=== PATIENT | male | born 1970 | race Caucasian/White ===

== ENCOUNTER 2019-03-21 02:56 | Emergency (ER) | payer OTHER, SELFPAY ==
[2019-03-21 02:57] VITALS: BP 132/83; PULSE 71; RESP 12; TEMP 36.6; O2SAT 98; BMI 28.6
--- NOTE | 2019-03-21 03:30 | ED.VIS.INJ ---
History of Present Illness Chief Complaint: Syncope Informant: Patient, Significant Other Onset: Today Mechanism/Context: Blunt Injury, Fall Quality of Pain: - - Patient denies any pain Location: Laceration above medial left brow Current Severity: Mild Maximum Severity: Moderate Worsened by: Blunt trauma Relieved by: Nothing Associated Symptoms: Loss of consciousness, -. Negative for: Parasthesias, Weakness, Loss of function, Inability to ambulate, Amnesia Length of loss of consciousness: Approximately 1 minute Narrative: Patient is a 48-year-old male who states he was getting out of bed. A charley horse. He fell forward striking his head. There was loss of conscious. He denies headache. Denies nausea vomiting. states he complained of neck pain. He presently denies neck pain. He denies paresthesia, anesthesia motors. He denies visual, ocular auditory symptoms. Last tetanus was March 19, 2010. Tetanus Immunization: 5-10 years Prior similar symptoms: No Recent Illness/Hospitalization: No - Past Medical History (1) No significant past medical history Status: Acute Past Medical History - Allergies and Home Meds Allergies/Adverse Reactions: Allergies No Known Allergies Allergy (Verified 03/21/19 02:57) Primary Care Physician: Elroy Hua MD [Primary Care Provider] - Prior records reviewed: Yes Past Medical History: None Surgical History: no surgical history Lives: Spouse/ Significant Other Smoking Status: Former smoker Alcohol: Rare Drugs: None Review of Systems General: Denies: Chills, Fever, Malaise Eyes: Denies: Visual changes - bilaterally, Blurred Vision - bilaterally, Diplopia ENT: Reports: - - Denies ringing in his ears decreased hearing. Denies epistaxis.. Denies: Bilateral ear pain, Rhinorrhea, Sore throat Cardiovascular: Denies: Chest pain, Palpitations Respiratory: Denies: Dyspnea, Cough, Dyspnea on exertion Gastrointestinal: Denies: Nausea, Vomiting Musculoskeletal: Reports: Neck pain - Initially states he complained of neck pain. He denies neck pain.. Denies: Myalgias, Arthralgias, Back pain, Swelling, Extremity Pain Skin: Reports: Wounds. Denies: Rash Neurological: Denies: Headache, Weakness, Parasthesia, Numbness Hematologic: Denies: Easy bruising, Easy bleeding Physical Exam Vital Signs/Narrative: Vital Signs Temp Pulse Resp BP Pulse Ox 03/21/19 02:57 97.8 F 71 12 132/83 H 98 Inital Vital Signs reviewed: Yes General: Well nourished, Well developed Head: Normocephalic, Trauma, - - There is no findings of basilar skull fracture. Eyes: Perrl, EOMI, - - No subconjunctival hemorrhage noted.. Negative for: Pale conjunctiva, Scleral icterus ENT: TM's clear, No hemotympanum or drainage, No trauma. Negative for: Hemotympanum, Otorrhea, Nasal trauma, Nasal septal hematoma Neck: Nontender, Full ROM, - - C-spine was cleared per Nexus criteria. Negative for: Spinal Tenderness, Paraspinal Tenderness Cardiovascular: Regular rate, Regular rhythm, No murmurs, Normal S1, Normal S2 Respiratory: No distress, CTA bilaterally, Chest nontender Abdomen: Soft, Nontender, Nondistended, Normal bowel sounds Back: Nontender Skin: Normal color, No rash, Trauma - Curvilinear laceration above the left eyebrow Neurological: Alert, Oriented x3, Cranial nerves II-XII grossly intact, Normal Strength, Normal Sensation, Normal DTR, Normal Gait Psychological: Normal affect - Glascow Coma Scale Eye Opening: Spontaneous Motor: Obeys Commands Verbal: Oriented Coma Scale Total: 15 Diagnostic/Tx/Re-eval - Medical Decision Making With no complaint of headache, no nausea vomiting and transient loss of consciousness per the [place] CT head rules radiologic imaging is not indicated. He and his were told he has a concussion. He does have a laceration which will require repair. The area was anesthetized by the supraorbital and trochlear nerve block. Please read procedure note. Laceration No standard instances Length: 1.18 in Depth: Fascia Shape: Linear Prep: Shure-Clens Laceration Repair: Lidocaine - Trochlear and supraorbital nerve block Irrigated (ml): 150 Number of Sutures/[place]: 9 Stitch Description: Simple, 6-0 ED Disposition - Plan for ED Patient: Disposition: Home or Assisted Living Diagnosis: Concussion with loss of consciousness <= 30 min, Facial laceration Instructions: LACERATION, Face (Suture or Tape), LACERATION, How to Minimize Scar, CONCUSSION, No Wake Up Referrals: Elroy Hua MD [Primary Care Provider] - 5 Days for suture removal Additional Instructions: Clean wound with peroxide and Q-tip 3 times a day then apply bacitracin ointment.
[2019-03-21 04:41] VITALS: BP 123/79; PULSE 72; RESP 14; O2SAT 99
== END 2019-03-21 04:49 | disposition home or self-care (01) ==
PROVIDERS: Emergency Provider Emergency Medicine; PCP Family Medicine
DX: S01.81XA Laceration without foreign body of other part of head, initial encounter (principal); S06.0X1A Concussion with loss of consciousness of 30 minutes or less, initial encounter; R40.2410 Glasgow coma scale score 13-15, unspecified time; W19.XXXA Unspecified fall, initial encounter; Y93.9 Activity, unspecified; Y92.9 Unspecified place or not applicable; Z87.891 Personal history of nicotine dependence
CPT/HCPCS: 12013; 99283

== ENCOUNTER → 2022-10-19 | Outpatient (CLI) | payer OTHER, SELFPAY ==
[2022-10-19 07:23] LABS: Absolute Lymphocyte Count 2.87 X10^3/uL (0.83-4.51); Basophil# 0.04 X10^3/uL; Basophil% 0.5 % (0-1); Eosinophil# 0.08 X10^3/uL; Eosinophils% 1.1 % (0-5); Hematocrit 44.1 % (40-54); Hemoglobin 14.5 g/dL (13.0-16.5); Lymphocyte # 2.87 X10^3/ul (0.83-4.51); Mean Corp Hgb Conc 32.9 g/dL (32-36); Mean Corpuscular Hgb 30.3 pg (27.0-32.0); Mean Corpuscular Volume 92.1 fL (80-94); Mean Platelet Vol. 8.2 fl (6.2-12.0); Monocyte# 0.56 X10^3/uL; Monocyte% 7.4 % (0-10); NRBC Flagged by Analyzer 0 % (0-5); Neutrophil # 3.98 X10^3/uL (2.7-7.7); Neutrophil % 52.7 % (47-70); Platelet Count 390 K/mm3 (150-450); RBC Distribution Width CV 12.3 % (11.6-14.6); RBC Distribution Width SD 42.1 fl (35.1-43.9); Red Blood Count 4.79 M/mm3 (4.6-6.2); White Blood Count 7.6 K/mm3 (4.4-11.0)
[2022-10-19 08:39] LABS: Vitamin D,25 Hydroxy 34.2 ng/mL
[2022-10-19 08:46] LABS: ALB/GLOB Ratio 1.2 RATIO (0.9-2.4); AST(SGOT) 16 U/L (15-37); Alanine Aminotransfer ALT/SGPT 31 U/L (16-61); Albumin, Serum 3.8 g/dL (3.2-5.0); Alkaline Phosphatase 54 U/L (45-117); Anion Gap 4 (5-15); BUN 15 mg/dL (7-18); BUN/Creat Ratio 17.1 RATIO (10-20); Calcium,Total 8.8 mg/dL (8.5-10.1); Chloride 106 mmol/L (98-107); Cholesterol 202 mg/dL (200); Creatinine, Serum 0.88 mg/dL (0.70-1.30); EST Glomerular Filtration Rate 98 mL/min (>60); Est Glom Filt Rate - Afr Amer 118 mL/min (>60); Globulin 3.3 g/dL (2.2-4.2); Glucose 121 mg/dL (74-106); High Density Lipoprotein 45 mg/dL; PSA,Total - Annual Screen 0.32 ng/mL (0.00-4.00); Potassium 3.6 mmol/L (3.5-5.1); Protein, Total 7.1 g/dL (6.4-8.2); Sodium Level 140 mmol/L (136-145); Thyroid Stim Hormone (TSH) 1.37 uIU/mL (0.358-3.74); Triglycerides 117 mg/dL; Very Low Density Lipoprotein 23 mg/dL (5-40)
[2022-10-20 12:16] LABS: Hemoglobin A1c 6.6 % (3.8-5.6)
== END | disposition home or self-care (01) ==
LOC: LAB 05:53
PROVIDERS: PCP Internal Medicine; Referring Provider Internal Medicine; Visit Provider Internal Medicine
DX: Z00.00 Encounter for general adult medical examination without abnormal findings (principal); E55.9 Vitamin D deficiency, unspecified; Z12.5 Encounter for screening for malignant neoplasm of prostate; R73.9 Hyperglycemia, unspecified; Z13.220 Encounter for screening for lipoid disorders
CPT/HCPCS: 36415; 80053; 80061; 82306; 83036; 84153; 84443; 85025; G0103

== ENCOUNTER 2022-12-02 07:23 | Day surgery (SDC) | payer OTHER, SELFPAY ==
[2022-12-02] VITALS (7 sets, daily range): BP systolic 94–126; BP diastolic 65–79; PULSE 65–79; RESP 16–18; TEMP 36.1–36.6; O2SAT 93–100; BMI 27.3
--- NOTE | 2022-12-02 07:43 | PCM.HP.BLA ---
History and Physical Date of Admission: 12/02/22 Visit Reasons: INGUINAL HERNIA/SCREENING SCOPE Chief Complaint: Possible right inguinal hernia Director Internal Control Required: No Is patient in pain?: No Allergies No Known Allergies Allergy (Verified 10/06/22 10:08) Medications NK 09/26/22 [History Confirmed 10/06/22] [facility] Medical History (Updated 10/06/22 @ 10:[address] Kevin Vega MD) Colon cancer screening Contact dermatitis due to plant Hepatitis HTN (hypertension) Right inguinal hernia Surgical History (Updated 10/06/22 @ 10:05 by Charo Padron) No history of previous surgery Family History (Updated 10/06/22 @ 10:06 by Charo Padron) Father Myocardial infarction Heart diseaseMother CVA (cerebral vascular accident) DiabetesSister Breast cancerOther Hypertension Non-Hodgkin lymphoma Social History (Updated 09/26/22 @ 09:09 by Octavio Banda) adopted: No household members: spouse housing: house number of children: 2 current occupational status: employed current occupation: [employer] current occupational exposures/hazards: Yes pets and animals: Yes leisure activities: fishing and other history of recent travel: Yes sexually active: Yes Smoking Status: Former smoker alcohol intake: current details: rarely substance use type: does not use well-balanced diet: daily or most days caffeine: Yes eating out: 1-3 times/week during the past year weight has: decreased > 10 lbs what type of physical activity do you participate in: other rivas/sikhism: Sikh seatbelt use: always do you feel safe at home: Yes HPI HPI HPI: 52-year-old gentleman is being referred by Dr. Jeannie Eubanks for surgical consultation regarding a suspected right inguinal hernia. A written copy of my surgical consult and recommendations will return to him. The patient apparently has noted this area for about 6 months. The patient is also being referred for consideration of a screening colonoscopy. The patient has not had a previous one. The patient is interested in screening colonoscopy today. He is complaining of a bulge in the right groin. 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 He still does significant mount of lifting. Occasionally by the end of the day there will be some discomfort in the right groin and he notices it more when he lies on his right side. He has not yet had to manually reduce it. He is also interested in pursuing a vasectomy. ROS General General: Yes weight change; No appetite, fatigue, colon cancer, breast cancer or weakness HEENT HEENT: No difficulty swallowing, eye injury, eye surgery, swollen glands or hoarseness Endo Endocrine: No thyroid disease, diabetes mellitus, thyroid cancer, Hair loss, heat intolerance or cold intolerance Skin Skin: No rash or changing moles Breast Breast: No left breast lump, right breast lump, nipple discharge, breast pain, abnormal mammogram, abnormal US or breast enlargement Musc Musculoskeletal: No back problems, arthritis, rheumatoid arthritis, gout or joint pain Cardio Cardiovascular: No murmur, pacemaker, heart disease, atrial fibrillation, high blood pressure, heart attack, heart stent, palpitations, shortness of breat with exertion or chest pain Psych Psychiatric: No depression, anxiety or hearing voices Resp Respiratory: No shortness of breath, No sleep apnea, No cough, No COPD, No asthma, No emphysema and No wheezing Gastro Gastrointestinal: No abdominal pain, No nausea or vomiting, No diarrhea, No constipation, No blood in stool, No acid reflux, No hemorrhoids, No ulcers, No gallbladder problem and No black,tarry stools Bridger Hematologic: No blood thinners, No blood disorders, No bleeding, No anemia and No blood clots Neuro Neurologic: No system reviewed and no additional complaints, except as documented, No as per HPI, No abnormal gait, No abnormal hearing, No abnormal movements, No abnormal speech, No behavioral changes, No burning sensations, No confusion, No convulsions, No disequilibrium, No dizziness, No localized weakness, No frequent falls, No headache(s), No lack of coordination, No loss of vision, No memory loss, No numbness, No other visual disturbances, No radicular pain, No restless legs, No sensory deficit, No syncope, No tingling, No tremor(s), No weakness and No other Exam Const General: cooperative, comfortable and no acute distress Nutritional Appearance: average body habitus [facility] Head: normal to inspection Eyes General: appearance normal, both eyes and all related structures Neck Neck: normal visual inspection Chest Chest palpation & inspection: normal inspection of the chest Resp Effort & Inspection: normal respiratory effort Auscultation: clear to auscultation bilaterally Cardio Rate: regular rate Rhythm: regular rhythm GI Inspection: normal to inspection Palpation: soft and no hepatosplenomegaly Other: Nonreducible umbilical hernia noted Other: Obvious right inguinal hernia which is reducible Weakness noted on the left but distinct hernia difficult to appreciate Bilateral testicles are descended without testicular mass Skin General: no rashes or lesions noted Neuro General: patient alert, patient awake and patient oriented x3 Extrem General: no calf tenderness Psych Appearance: grossly normal Assessment and Plan Assessment and Plan (1) Colon cancer screening: Status: Acute (2) Right inguinal hernia: Status: Acute Plan: I recommend to the patient a screening colonoscopy with possible biopsy or polypectomy as indicated. He is aware of the technique, benefit, risk, alternatives. We will schedule and proceed as noted. I recommended the patient laparoscopic right inguinal herniorrhaphy with mesh. He is aware that if there is an obvious left inguinal hernia that I will proceed with a left inguinal herniorrhaphy laparoscopically at the same setting. Clinically I detected an umbilical hernia with preperitoneal fatty tissue. He is aware that we make an incision there and I will be performing an umbilical herniorrhaphy likely with mesh at the same setting. He also is aware of technique, benefit, risk, alternatives. He had an opportunity to ask and have questions answered. We will schedule and proceed as noted. The patient asked about sterilization in the form of bilateral partial vasectomy. In detail I have discussed with him the technique, benefit, risk, alternatives. He is additionally been provided written descriptive information. He is aware that there are no guarantees of success. He is aware that I consider this to be a permanent procedure. I have offered to proceed and perform this during his operative hernia repairs. I very much appreciate the kind opportunity of assisting with the surgical care Copy: Dr. Jeannie Vega M.D., F.A.C.S. (3) Encounter for sterilization: Status: Acute (4) Umbilical hernia without obstruction or gangrene: Status: Acute I have examined the patient and the H&P has been reviewed. There are no clinical changes since date of exam. Kevin Vega M.D., F.A.C.S.
[2022-12-02] MEDS: Lactated Ringers 1,000 ML 15 ML IV (07:48)
--- NOTE | 2022-12-02 08:30 | COLBX_PTH ---
PATIENT: VIVIENNE SOLIS LOC: EN U#:[id number] AGE/SX: 52/M ROOM: RE12/02/[address]: Dr. Kevin Vega MD : 1970 BED: DIS: 12/02/2022 SPEC #: [id number] RECD: 12/02/22 10:17 STATUS: MARGIE ASENCIO #: [id number] JIM: 12/02/22 08:[address]: Kevin Vega DEPT: SURGICAL PATHOLOGY RECD BY: Lizz Herbert ENTERED: 12/02/22 11:09 SP TYPE: COLON BX OTHR DR: Dr. Jeannie Eubanks MD Tissues: COLON BIOPSY Procedures: Surgery Specimen Level IV HEADER OPERATION: Colonoscopy, biopsy PRE-OP DIAGNOSIS: Screening TISSUE SUBMITTED: Hepatic flexure MICROSCOPIC DIAGNOSIS Hepatic flexure, biopsy: Fragments of hyperplastic polyp. SJ:karla 12/05/2022 MICROSCOPIC DESCRIPTION Slides are reviewed. GROSS DESCRIPTION Received in fixative is one container labeled with the patient's name and designated hepatic flexure. The specimen consists of multiple irregular fragments of light mcdonald soft tissue that in aggregate measure 1.0 x 0.4 x 0.1 cm. The specimen is totally submitted in one cassette. / SJ:karla 12/02/2022 TC:5 CPT: 97516
--- NOTE | 2022-12-02 08:45 | OP.COLON_ITS ---
Patient Name: Yoandy Ragsdale Procedure Date: 12/02/2022 8:18 AM Date of : 1970 Age: 52 Procedure: Colonoscopy Indications: Screening for colorectal malignant neoplasm Providers: Kevin Vega MD Medicines: See the Anesthesia note for documentation of the administered medications Patient Profile: Last Colonoscopy: none. The patient's first colonoscopy is today. Complications: No immediate complications. Procedure: Pre-Anesthesia Assessment: - Prior to the procedure, a History and Physical was performed, and patient medications and allergies were reviewed. The patient's tolerance of previous anesthesia was also reviewed. The risks and benefits of the procedure and the sedation options and risks were discussed with the patient. All questions were answered, and informed consent was obtained. Prior Anticoagulants: The patient has taken no anticoagulant or antiplatelet agents. ASA Grade Assessment: II - A patient with mild systemic disease. After reviewing the risks and benefits, the patient was deemed in satisfactory condition to undergo the procedure. After I obtained informed consent, the scope was passed under direct vision. Throughout the procedure, the patient's blood pressure, pulse, and oxygen saturations were monitored continuously. The Colonoscope was introduced through the anus and advanced to the terminal ileum, with identification of the appendiceal orifice and IC valve. The colonoscopy was performed without difficulty. The patient tolerated the procedure well. The quality of the bowel preparation was fair. The ileocecal valve and the appendiceal orifice were photographed. Scope In: 8:25:39 AM Scope Withdrawal Time 0 hours 10 minutes 53 seconds Scope Out: 8:40:26 AM Total Procedure Duration Time 0 hours 14 minutes 47 seconds Findings: The digital rectal exam findings include non-thrombosed internal hemorrhoids and internal hemorrhoids (Grade I). Pertinent negatives include normal prostate (size, shape, and consistency). A 3 mm polyp was found in the hepatic flexure. The polyp was sessile. The polyp was removed with a cold biopsy forceps. Resection and retrieval were complete. Multiple diverticula were found in the sigmoid colon and descending colon. Impression: - Preparation of the colon was fair. - Non-thrombosed internal hemorrhoids and internal hemorrhoids (Grade I) found on digital rectal exam. - One 3 mm polyp at the hepatic flexure, removed with a cold biopsy forceps. Resected and retrieved. - Diverticulosis in the sigmoid colon and in the descending colon. Recommendation: - Discharge patient to home. - Resume previous diet. - Continue present medications. - Repeat colonoscopy in 5-10years for surveillance based on pathology results. This area of the hepatic flexure was very small and nonspecific. Cold forcep biopsy pending. - Telephone my office for pathology results in 1 week. Procedure Code(s): --- Professional --- 70323, Colonoscopy, flexible; with biopsy, single or multiple Diagnosis Code(s): --- Professional --- Z12.11, Encounter for screening for malignant neoplasm of colon K64.0, First degree hemorrhoids D12.3, Benign neoplasm of transverse colon (hepatic flexure or splenic flexure) K57.30, Diverticulosis of large intestine without perforation or abscess without bleeding CPT copyright 2021 [employer]. All rights reserved. The codes documented in this report are preliminary and upon fish cleaner machine tender review may be revised to meet current compliance requirements. Kevin Vega MD 12/02/2022 8:45:21 AM This report has been signed electronically. Number of Addenda: 0 Note Initiated On: 12/02/2022 8:18 AM
--- NOTE | 2022-12-02 08:46 | OP.CCLET_ITS ---
12/02/2022 Jeannie Eubanks [facility] [address] [place] [address] Re : Colonoscopy procedure for Yoandy Ragsdale Dear Dr. Eubanks This procedure was performed on Friday, December 02, 2022. My impressions and recommendations are as follows: Impressions : - Preparation of the colon was fair. - Non-thrombosed internal hemorrhoids and internal hemorrhoids (Grade I) found on digital rectal exam. - One 3 mm polyp at the hepatic flexure, removed with a cold biopsy forceps. Resected and retrieved. - Diverticulosis in the sigmoid colon and in the descending colon. Recommendations : - Discharge patient to home. - Resume previous diet. - Continue present medications. - Repeat colonoscopy in 5-10years for surveillance based on pathology results. This area of the hepatic flexure was very small and nonspecific. Cold forcep biopsy pending. - Telephone my office for pathology results in 1 week. My findings are described in the full procedure note, which is enclosed. If I can be of further assistance, please feel free to contact me at Doctor phone number(s): Work: . Sincerely, Kevin Vega MD 12/02/2022 8:45:21 AM This report has been signed electronically.
== END 2022-12-02 09:35 | disposition home or self-care (01) ==
LOC: EN 07:23 → AC 07:24
PROVIDERS: PCP Internal Medicine; Referring Provider Internal Medicine; Visit Provider Surgery
PROC: 0DJD8ZZ Inspection of Lower Intestinal Tract, Via Natural or Artificial Opening Endoscopic (ICD-10-PCS; CPT 45378; principal; 2022-12-02 08:25)
DX: Z12.11 Encounter for screening for malignant neoplasm of colon (principal); K63.5 Polyp of colon; K57.30 Diverticulosis of large intestine without perforation or abscess without bleeding; K64.0 First degree hemorrhoids; I10 Essential (primary) hypertension; Z87.891 Personal history of nicotine dependence; K40.90 Unilateral inguinal hernia, without obstruction or gangrene, not specified as recurrent
CPT/HCPCS: 45380; 88305; J7120; J2405

== ENCOUNTER 2023-01-30 06:05 | Day surgery (SDC) | payer OTHER, SELFPAY ==
[2023-01-18 08:29] LABS: Hematocrit 44.7 % (40-54); Hemoglobin 14.8 g/dL (13.0-16.5); Mean Corp Hgb Conc 33.1 g/dL (32-36); Mean Corpuscular Hgb 29.7 pg (27.0-32.0); Mean Corpuscular Volume 89.8 fL (80-94); Mean Platelet Vol. 8.1 fl (6.2-12.0); Platelet Count 368 K/mm3 (150-450); RBC Distribution Width CV 12.6 % (11.6-14.6); RBC Distribution Width SD 41.2 fl (35.1-43.9); Red Blood Count 4.98 M/mm3 (4.6-6.2); White Blood Count 8.4 K/mm3 (4.4-11.0)
[2023-01-18 08:54] LABS: Anion Gap 5 (5-15); BUN 13 mg/dL (7-18); BUN/Creat Ratio 14.6 RATIO (10-20); Calcium,Total 9.1 mg/dL (8.5-10.1); Chloride 104 mmol/L (98-107); Creatinine, Serum 0.89 mg/dL (0.70-1.30); EST Glomerular Filtration Rate 95 mL/min (>60); Est Glom Filt Rate - Afr Amer 115 mL/min (>60); Glucose 143 mg/dL (74-106); Potassium 3.5 mmol/L (3.5-5.1); Sodium Level 137 mmol/L (136-145)
[2023-01-30] VITALS (10 sets, daily range): BP systolic 112–129; BP diastolic 70–84; PULSE 66–89; RESP 16–18; TEMP 36.2–36.4; O2SAT 94–100; BMI 28.4
[2023-01-30] MEDS: Lactated Ringers 1,000 ML 15 ML IV (06:54)
--- NOTE | 2023-01-30 06:58 | HP.PCM_ITS ---
History and Physical Date of Admission: 01/30/23 Chief Complaint: Possible right inguinal hernia Public Policy Analyst Required: No Is patient in pain?: No Allergies No Known Allergies Allergy (Verified 10/06/22 10:08) Medications NK 09/26/22 [History Confirmed 10/06/22] COUNT INCLUDES THE [facility] Medical History (Updated 10/06/22 @ 10:[address] Kevin Vega MD) Colon cancer screening Contact dermatitis due to plant Hepatitis HTN (hypertension) Right inguinal hernia Surgical History (Updated 10/06/22 @ 10:05 by Charo Padron) No history of previous surgery Family History (Updated 10/06/22 @ 10:06 by Charo Padron) Father Myocardial infarction Heart diseaseMother CVA (cerebral vascular accident) DiabetesSister Breast cancerOther Hypertension Non-Hodgkin lymphoma Social History (Updated 09/26/22 @ 09:09 by Octavio Banda) adopted: No household members: spouse housing: house number of children: 2 current occupational status: employed current occupation: [employer] current occupational exposures/hazards: Yes pets and animals: Yes leisure activities: fishing and other history of recent travel: Yes sexually active: Yes Smoking Status: Former smoker alcohol intake: current details: rarely substance use type: does not use well-balanced diet: daily or most days caffeine: Yes eating out: 1-3 times/week during the past year weight has: decreased > 10 lbs what type of physical activity do you participate in: other rivas/druze: Confucianism seatbelt use: always do you feel safe at home: Yes HPI HPI HPI: 52-year-old gentleman is being referred by Dr. Jeannie Eubanks for surgical consultation regarding a suspected right inguinal hernia. A written copy of my surgical consult and recommendations will return to him. The patient apparently has noted this area for about 6 months. The patient is also being referred for consideration of a screening colonoscopy. The patient has not had a previous one. The patient is interested in screening colonoscopy today. He is complaining of a bulge in the right groin. 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 He still does significant mount of lifting. Occasionally by the end of the day there will be some discomfort in the right groin and he notices it more when he lies on his right side. He has not yet had to manually reduce it. He is also interested in pursuing a vasectomy. ROS General General: Yes weight change; No appetite, fatigue, colon cancer, breast cancer or weakness HEENT HEENT: No difficulty swallowing, eye injury, eye surgery, swollen glands or hoarseness Endo Endocrine: No thyroid disease, diabetes mellitus, thyroid cancer, Hair loss, heat intolerance or cold intolerance Skin Skin: No rash or changing moles Breast Breast: No left breast lump, right breast lump, nipple discharge, breast pain, abnormal mammogram, abnormal US or breast enlargement Musc Musculoskeletal: No back problems, arthritis, rheumatoid arthritis, gout or joint pain Cardio Cardiovascular: No murmur, pacemaker, heart disease, atrial fibrillation, high blood pressure, heart attack, heart stent, palpitations, shortness of breat with exertion or chest pain Psych Psychiatric: No depression, anxiety or hearing voices Resp Respiratory: No shortness of breath, No sleep apnea, No cough, No COPD, No asthma, No emphysema and No wheezing Gastro Gastrointestinal: No abdominal pain, No nausea or vomiting, No diarrhea, No constipation, No blood in stool, No acid reflux, No hemorrhoids, No ulcers, No gallbladder problem and No black,tarry stools Bridger Hematologic: No blood thinners, No blood disorders, No bleeding, No anemia and No blood clots Neuro Neurologic: No system reviewed and no additional complaints, except as documented, No as per HPI, No abnormal gait, No abnormal hearing, No abnormal movements, No abnormal speech, No behavioral changes, No burning sensations, No confusion, No convulsions, No disequilibrium, No dizziness, No localized weakness, No frequent falls, No headache(s), No lack of coordination, No loss of vision, No memory loss, No numbness, No other visual disturbances, No radicular pain, No restless legs, No sensory deficit, No syncope, No tingling, No tremor(s), No weakness and No other Exam Const General: cooperative, comfortable and no acute distress Nutritional Appearance: average body habitus [facility] Head: normal to inspection Eyes General: appearance normal, both eyes and all related structures Neck Neck: normal visual inspection Chest Chest palpation & inspection: normal inspection of the chest Resp Effort & Inspection: normal respiratory effort Auscultation: clear to auscultation bilaterally Cardio Rate: regular rate Rhythm: regular rhythm GI Inspection: normal to inspection Palpation: soft and no hepatosplenomegaly Other: Nonreducible umbilical hernia noted Other: Obvious right inguinal hernia which is reducible Weakness noted on the left but distinct hernia difficult to appreciate Bilateral testicles are descended without testicular mass Skin General: no rashes or lesions noted Neuro General: patient alert, patient awake and patient oriented x3 Extrem General: no calf tenderness Psych Appearance: grossly normal Assessment and Plan Assessment and Plan (1) Colon cancer screening: Status: Acute (2) Right inguinal hernia: Status: Acute Plan: I recommend to the patient a screening colonoscopy with possible biopsy or polypectomy as indicated. He is aware of the technique, benefit, risk, alternatives. We will schedule and proceed as noted. I recommended the patient laparoscopic right inguinal herniorrhaphy with mesh. He is aware that if there is an obvious left inguinal hernia that I will proceed with a left inguinal herniorrhaphy laparoscopically at the same setting. Clinically I detected an umbilical hernia with preperitoneal fatty tissue. He is aware that we make an incision there and I will be performing an umbilical herniorrhaphy likely with mesh at the same setting. He also is aware of technique, benefit, risk, alternatives. He had an opportunity to ask and have questions answered. We will schedule and proceed as noted. The patient asked about sterilization in the form of bilateral partial vasectomy. In detail I have discussed with him the technique, benefit, risk, alternatives. He is additionally been provided written descriptive information. He is aware that there are no guarantees of success. He is aware that I consider this to be a permanent procedure. I have offered to proceed and perform this during his operative hernia repairs. I very much appreciate the kind opportunity of assisting with the surgical care Copy: Dr. Jeannie Vega M.D., F.A.C.S. (3) Encounter for sterilization: Status: Acute (4) Umbilical hernia without obstruction or gangrene: Status: Acute Patient presents for treatment of an umbilical hernia and a right inguinal hernia and request for sterilization in the form of bilateral partial vasectomy. Plan to perform a laparoscopic right inguinal herniorrhaphy with subsequent a direct umbilical herniorrhaphy. Mesh will be utilized were necessary. Plan to proceed with a laparoscopic right partial vasectomy and open Mullins scrotal left partial vasectomy as a means of sterilization. If a left inguinal hernia is identified at the time this operation the patient requested that I proceed laparoscopically with a left inguinal herniorrhaphy as well. I have assisted him with a colonoscopy on December 02, 2022. Preparation of the colon was fair. Hemorrhoids were notified. A 3 mm polyp was seen in the hepatic flexure and was removed. Sigmoid diverticulosis noted. Pathology on the polyp was hyperplastic. He has had an opportunity to ask and have questions answered. We will proceed as noted. Kevin Vega M.D., F.A.C.S.
--- NOTE | 2023-01-30 07:18 | DCINST_ITS ---
Discharge Instructions Procedure General Surgery Diet Discharge Diet: Light diet - advance as tolerated (if you have questions about your diet instructions, please talk to you doctor.) Activity Discharge Activity: May Not Drive (for 3-5 days or while taking narcotic pain medicine.) May shower in (days): 1 Lifting Restrictions: 10 pounds Dressing / Incision Call your doctor if your incision/area has: Continuous Slow Oozing, Sudden Increased Bleeding, Increased Pain/ Swelling, Increased Redness and Foul Smelling Discharge Call your doctor if you observe: Fever of 101 or Higher Suture Line Care: Avoid Pulling/Pushing and Avoid Pinching/Bending Additional Dressing/Incision Instructions:: Change or remove dressing in 4 days. Leave steri-strips in place for 1 week. Follow Up Care Please Follow Up With: Kevin Vega MD When: Call [phone] to make an appointment to be seen in about 10 days. Test Results: Test results from this visit will be discussed in further detail at your follow- up appointment, if applicable. Discharge Plan Admission Attending Provider: Kevin Vega Primary Care Provider: Jeannie Eubanks Discharge Orders/Prescriptions Prescriptions: No Action NK Referrals / Follow Up: Jeannie Eubanks MD [Primary Care Provider] - Disposition Disposition (needs filled in before D/C Order can be placed): Home, Self Care
[2023-01-30] MEDS: Cefazolin 2 GM in 0.9% Normal Saline (100mL Bag) 100 ML IV (07:27)
--- NOTE | 2023-01-30 07:30 | VAS_PTH ---
PATIENT: VIVIENNE SOLIS LOC: [facility] U#:[id number] AGE/SX: 52/M ROOM: RE01/30/[address]: Dr. Kevin Vega MD : 1970 BED: DIS: 01/30/2023 SPEC #: [id number] RECD: 01/30/23 12:03 STATUS: MARGIE ASENCIO #: [id number] JIM: 01/30/23 07:[address]: Kevin Vega DEPT: SURGICAL PATHOLOGY RECD BY: Mariah Burnett ENTERED: 01/30/23 12:04 SP TYPE: VAS OTHR DR: Dr. Jeannie Eubanks MD Tissues: A - HERNIA B - Right vas deferens (non-sterilization) C - Left vas deferens (not sterilization) Procedures: Surgery Specimen Level II Surgery Specimen Level III HEADER OPERATION: Laparoscopic right inguinal hernia repair PRE-OP DIAGNOSIS: Right inguinal hernia, sterilization, umbilical hernia TISSUE SUBMITTED: A - Hernia sac and contents, B - Right vas deferens, C - Left vas deferens MICROSCOPIC DIAGNOSIS A. Hernia sac: Pieces of fibroadipose and fibroconnective tissue, consistent with hernia sac. B. Right vas deferens, partial vasectomy: Completely transected segment of vas deferens, no pathologic diagnosis. C. left vas deferens, partial vasectomy: Completely transected segment of vas deferens, no pathologic diagnosis. BENIGNO:karla 01/31/2023 MICROSCOPIC DESCRIPTION Slides are reviewed. GROSS DESCRIPTION A - Received in fixative is one container labeled with the patient's name and designated hernia sac and contents. The specimen consists of two pieces of soft tissue measuring in aggregate 3.0 x 1.5 x 0.6 cm. No mass lesion is identified. Reading Teacher sections are submitted in one cassette. A - Received is one container designated right vas deferens. The specimen consists of a tubular segment of mcdonald soft tissue measuring 2.0 cm in length and up to 0.3 cm in diameter. The specimen is sectioned and submitted entirely in one cassette. B - Received is one container designated left vas deferens. The specimen consists of a tubular segment of mcdonald soft tissue measuring 2.0 cm in length and 0.3 cm in diameter. The specimen is sectioned and submitted entirely in one cassette. / BENIGNO:karla 01/30/2023 TC:5 CPT: 95931 x 3
[2023-01-30] MEDS: Mupirocin Ointment 22gm Tube 1 APPLIC (08:58)
[2023-01-30] MEDS: Bupivacaine Mpf 0.5% 30 ML VIAL (09:09)
--- NOTE | 2023-01-30 09:22 | OP.PCM_ITS ---
Report of Operation Date of Procedure: 01/30/23 Pre-Operative Diagnosis: Large indirect right inguinal hernia, ventral hernia at the umbilicus, request for bilateral partial vasectomy as a means of sterilization Post-Operative Diagnosis: Same Umbilical defect 2.5 cm in diameter Surgery/Procedure Performed:: Laparoscopic right inguinal herniorrhaphy with extra-large Bard 3D max mesh, lot [id number], reference [id number], expiry date 06/11/2027 Umbilical herniorrhaphy with Ventralex ST hernia patch 6.4 cm diameter, lot [id number], reference #[id number], expiry date 04/12/2024 Laparoscopic right partial vasectomy, Mullins scrotal left partial vasectomy Description of Surgical Findings:: Timeout informed consent was obtained. 52-year-old gentleman was taken to the operating placed upon the table underwent general endotracheal ovation esthesia. Ancef 2 g were given intravenously. The abdomen and full scrotal prep was performed. 0.5% Marcaine was used as a local anesthetic. Throughout the procedure a total of 30 cc was used. Skin sites were Haydee size. A curvilinear incision was made in the inferior portion of the umbilicus sharp and blunt dissection performed umbilical hernia sac and contents were dissected free with sharp scalpel and scissor and electrocautery dissection. Preperitoneal plane plane was developed. And a sound catheter though then was inserted the abdomen was insufflated with CO2 to a pressure of 10 mmHg pressure. 10 mm laparoscope inserted. 5 mm trocars were placed on the right and left lower quadrant. The left groin was inspected photographs obtained no evidence of any significant corneal defect. Right groin was imaged demonstrating a large indirect right inguinal hernia. The peritoneum superior and lateral to the internal ring on the right was incised carried immediately tediously the peritoneum was dissected free a very large indirect inguinal hernia was encountered and the dissection was quite tedious sharp dissection blunt dissection was used to completely invert the sac the direct space was then identified the indirect space and the femoral area. A extra-large Bard 3D max mesh was placed and it very nicely cover the defect area. It was secured laterally and superiorly and medially with secure strap. I felt that I got very good coverage and fixation. The peritoneum was approximated to itself with secure strap. Couple defects in the peritoneum were closed with Hem-o-brian clips. Complete obliteration to the mesh was achieved. It is of note that prior to closing the peritoneum I did do a partial vasectomy on the right. The vas deferens was dissected free Hem-o-brian clips were placed proximally and distally prior to a approximately 3 cm segment excised. That was submitted directly into formalin. The abdomen is mild inflated with CO2. A preperitoneal space was created at the umbilicus. 6.[address] mesh was inserted the tails were secured with interrupted 0 Nurolon and the fascia was approximated transversely with simple sutures of 0 Nurolon with the sutures getting a portion of the anterior wall of the mesh. The abdomen was then reinsufflated and using a 5 mm scope inspected the closure at the umbilicus which appeared to be intact. The peritoneum had been closed itself with a umrrkb-ad-gqaig suture of 0 Vicryl. The groin was inspected was noted to be intact. The abdomen was allowed to deflated the CO2. Skin edges were approximated with interrupted 4 Monocryl subdermal stitches Steri-Strips Telfa OpSite dressings applied. Attention was now drawn to the left scrotum. Small incision was created the vas deferens was localized elevated and dissected free. The ends were crushed with hemostats the segment was transected the ends were secured with 3-0 chromic reconverted and resecured. The skin edges approximated interrupted subdermal sutures of 3-0 chromic. Topical antibiotic ointment was applied followed by gauze dressing. Fishnet panties were applied. Sponge and instrument and needle counts were reported to the surgeon to be cor rect. Blood loss was minimal. No apparent complication. He tolerated the procedure well. He was taken to the recovery area in satisfied condition. Specimen umbilical hernia sac and contents. Segments of bilateral vas deferens. Drains none. Blood loss minimal He was taken to the recovery room in satisfied condition without apparent complication Kevin Vega M.D., F.A.C.S. Surgeon: Kevin Vega Type of Anesthesia: General and Local Anesthesiologist: Ranjith Topete
[2023-01-30] MEDS: HYDROcodone Bitartrate/Apap 5/325 Tablet PO (11:03)
== END 2023-01-30 11:45 | disposition home or self-care (01) ==
LOC: SDC 06:06 → AC 06:06
PROVIDERS: PCP Internal Medicine; Referring Provider Surgery; Visit Provider Surgery
PROC: (CPT 49650; principal; 2023-01-30 07:10)
DX: K40.90 Unilateral inguinal hernia, without obstruction or gangrene, not specified as recurrent (principal); K43.9 Ventral hernia without obstruction or gangrene; I10 Essential (primary) hypertension; Z87.891 Personal history of nicotine dependence; K42.9 Umbilical hernia without obstruction or gangrene; Z30.2 Encounter for sterilization
CPT/HCPCS: 49650; 55250; 00840; 36415; 80048; 85027; 88302; 88304; 93005; C1781; J7120; J2405

== ENCOUNTER → 2023-03-08 | Outpatient (CLI) | payer OTHER, SELFPAY ==
--- NOTE | 2023-03-08 06:04 | CYSPIN_PTH ---
PATHOLOGY RESULTS PATIENT: VIVIENNE SOLIS LOC: [facility] U#:[id number] AGE/SX: 52/M ROOM: RE03/08/[address]: Dr. Kevin Vega MD : 1970 BED: DIS: 03/08/2023 SPEC #: [id number] RECD: 03/08/23 08:23 STATUS: MARGIE ASENCIO #: [id number] JIM: 03/08/23 06:[address]: Kevin Vega DEPT: CYTOLOGY RECD BY: Lizz Herbert ENTERED: 03/08/23 08:25 SP TYPE: CYSPIN FL OTHR DR: Dr. Jeannie Eubanks MD Tissues: Cytologic material, NOS Procedures: Pap Stain (control) Special Stain Group II Cytospin Fluid HEADER OPERATION: Not noted PRE-OP DIAGNOSIS: Z98.52 TISSUE SUBMITTED: Semen fluid for cytology DIAGNOSIS CYTOLOGY Semen analysis (cytospin): Spermatozoa present. AM:karla 03/08/2023 COMMENT Case has been reviewed in consultation with Dr. Garcia who concurs with the above diagnosis. IDC:SJ CYTOLOGY STUDY Slides are reviewed. CYTOLOGY GROSS Received is 4 ml of opaque mucoidy fluid labeled with the patient's name and and designated per the requisition as semen. Submitted for cytology preparation. / karla 03/08/2023 TC:5 CPT: 07904
[2023-03-08 18:16] LABS: Pathologist Review Will follow; Semen Analysis Post Vas PATH REVIEW ONLY
== END | disposition home or self-care (01) ==
LOC: LABSPEC 06:01
PROVIDERS: PCP Internal Medicine; Referring Provider Surgery; Visit Provider Surgery
DX: Z30.2 Encounter for sterilization (principal)
CPT/HCPCS: 88108; 88313; 89321

== ENCOUNTER → 2023-04-18 | Outpatient (CLI) | payer OTHER, SELFPAY ==
--- NOTE | 2023-04-18 | CYSPIN_PTH ---
PATHOLOGY RESULTS PATIENT: VIVIENNE SOLIS LOC: LAB U#:[id number] AGE/SX: 52/M ROOM: RE04/18/[address]: Dr. Kevin Vega MD : 1970 BED: DIS: 04/18/2023 SPEC #: [id number] RECD: 04/18/23 08:48 STATUS: MARGIE ASENCIO #: [id number] JIM: 04/18/23 00:[address]: Kevin Vega DEPT: CYTOLOGY RECD BY: Case Brock ENTERED: 04/18/23 08:49 SP TYPE: CYSPIN FL OTHR DR: Dr. Jeannie Eubanks MD Tissues: Cytologic material, NOS Procedures: Pap Stain (control) Special Stain Group II Cytospin Fluid HEADER OPERATION: Post vasectomy PRE-OP DIAGNOSIS: Vasectomy status TISSUE SUBMITTED: Seminal fluid for cytology DIAGNOSIS CYTOLOGY Seminal fluid for cytology (cytospin): Rare spermatozoa are present in the sample. AM:karla 04/18/2023 CYTOLOGY STUDY Slides are reviewed. CYTOLOGY GROSS Received is 1 ml of cloudy opaque fluid labeled with the patient's name and and designated per the requisition as seminal fluid. Submitted for cytology preparation. / karla 04/18/2023 TC:5 CPT: 21610
[2023-04-18 15:57] LABS: Pathologist Review Reviewed
[2023-04-18 15:58] LABS: Semen Analysis Post Vas PATH REVIEW ONLY
== END | disposition home or self-care (01) ==
LOC: LAB 06:09
PROVIDERS: PCP Internal Medicine; Referring Provider Surgery; Visit Provider Surgery
DX: Z30.2 Encounter for sterilization (principal)
CPT/HCPCS: 88108; 88313; 89321

== ENCOUNTER → 2023-05-25 | Outpatient (CLI) | payer OTHER, SELFPAY ==
--- NOTE | 2023-05-25 05:30 | CYSPIN_PTH ---
PATIENT: VIVIENNE SOLIS LOC: [facility] U#:[id number] AGE/SX: 52/M ROOM: RE05/25/[address]: Dr. Kevin Vega MD : 1970 BED: DIS: 05/25/2023 SPEC #: [id number] RECD: 05/25/23 08:46 STATUS: MARGIE ASENCIO #: [id number] JIM: 05/25/23 05:[address]: Kevin Vega DEPT: CYTOLOGY RECD BY: Lizz Herbert ENTERED: 05/25/23 08:46 SP TYPE: CYSPIN FL OTHR DR: Dr. Jeannie Eubanks MD Tissues: Cytologic material, NOS Procedures: Pap Stain (control) Special Stain Group II Cytospin Fluid HEADER OPERATION: Post vasectomy PRE-OP DIAGNOSIS: Post vasectomy status TISSUE SUBMITTED: Spermatozoa for cytology DIAGNOSIS CYTOLOGY Seminal fluid for cytology (cytospin): Spermatozoa are not present. SJ/mr 05/25/23 CYTOLOGY STUDY Slides are reviewed. CYTOLOGY GROSS Received is 5 ml of mcdonald cloudy mucoidy fluid labeled with the patient's name and and designated per the requisition as Spermatozoa fluid. Submitted for cytology preparation including cell block. 05/25/23 TC:5 CPT: 01765
[2023-05-25 06:02] LABS: Cytology, Semen SEE PATHOLOGY REPORT
== END | disposition home or self-care (01) ==
LOC: LABSPEC 05:57
PROVIDERS: PCP Internal Medicine; Referring Provider Surgery; Visit Provider Surgery
DX: Z98.52 Vasectomy status (principal); Z30.2 Encounter for sterilization
CPT/HCPCS: 88108; 88313

== ENCOUNTER → 2023-06-08 | Outpatient (CLI) | payer OTHER, SELFPAY ==
--- NOTE | 2023-06-07 06:12 | CYSPIN_PTH ---
PATIENT: VIVIENNE SOLIS LOC: [facility] U#:[id number] AGE/SX: 52/M ROOM: RE06/08/[address]: Dr. Kevin Vega MD : 1970 BED: DIS: 06/08/2023 SPEC #: [id number] RECD: 06/08/23 11:31 STATUS: MARGIE ASENCIO #: [id number] JIM: 06/07/23 06:[address]: Kevin Vega DEPT: CYTOLOGY RECD BY: Lizz Herbert ENTERED: 06/08/23 11:31 SP TYPE: CYSPIN FL OTHR DR: Dr. Jeannie Eubanks MD Tissues: Cytologic material, NOS Procedures: Pap Stain (control) Special Stain Group II Cytospin Fluid HEADER OPERATION: Post vasectomy PRE-OP DIAGNOSIS: Post vasectomy status TISSUE SUBMITTED: Seminal fluid DIAGNOSIS CYTOLOGY Seminal fluid for cytology (cytospin): No spermatozoa identified. SJ/mr 06/08/2023 CYTOLOGY STUDY Slides are reviewed. CYTOLOGY GROSS Received is 0.5 ml of thick cloudy fluid labeled with the patient's name and and designated per the requisition as Seminal fluid. Submitted for cytology preparation including cell block. mr 06/08/2023 TC:4 CPT: 69145
[2023-06-08 06:13] LABS: Cytology, Semen SEE PATHOLOGY REPORT
== END | disposition home or self-care (01) ==
PROVIDERS: PCP Internal Medicine; Referring Provider Surgery; Visit Provider Surgery
DX: Z30.2 Encounter for sterilization (principal); Z98.52 Vasectomy status
CPT/HCPCS: 88108; 88313